=== PATIENT | female | born 1990 | race Two or more races ===

== ENCOUNTER → 2021-01-24 | Outpatient (CLI) | payer OTHER ==
--- NOTE | 2021-01-24 11:00 | DEXAMM ---
INDICATION: POOR CALORIC INTAKE,EVALUATE FOR ABNORMALITIES. COMPARISON: None. TECHNIQUE: Bone density was measured using dual-energy x-ray absorptiometry (DEXA). FINDINGS: AP SPINE L1-L4 BMD 1.276 g/cm2 Young Adult T-Score 0.7 Age Matched Z-Score 0.7. LT FEMUR, TOTAL BMD 1.065 g/cm2 Young Adult T-Score 0.5 Age Matched Z-Score 0.6. LT NECK BMD 1.1007 g/cm2 Young Adult T-Score 0.5 Age Matched Z-Score 0.7. RT FEMUR, TOTAL BMD 1.061 g/cm2 Young Adult T-Score 0.4 Age Matched Z-Score 0.5. RT NECK BMD 1.085 g/cm2 Young Adult T-Score 0.3 Age Matched Z-Score 0.6. IMPRESSION: There is normal bone density of the spine. There is normal bone density of the left hip. There is normal bone density of the right hip. FOLLOW-UP: Recommendation for the next bone density exam: 5 years. <Electronically signed by Lamine Eugene > 01/24/21 [id number]
== END ==
LOC: M WHC 09:53
PROVIDERS: ATTEND Physician Assistant
DX: E63.9 Nutritional deficiency, unspecified (principal)